=== PATIENT | male | born 1965 | race Two or more races ===

== ENCOUNTER → 2016-07-25 | Outpatient (CLI) | payer OTHER ==
[~2016-07-25] MED LIST: AMLO5TAB2 PO; ASPI-496 PO; CLIN300C93 PO; DULO30CA2 PO; IBUP200C PO; LISI-170 PO; METO50TA82 PO; OMEG1CAP12 PO; OMEP40CA6 PO; OXYC5CAP4 PO; PREG200C PO; TIZA4CAP PO; VITA1CAP3 PO
== END | disposition home or self-care (01) ==
LOC: RAD 10:08
DX: R79.89 Other specified abnormal findings of blood chemistry (principal)
CPT/HCPCS: 76700

== ENCOUNTER 2019-09-19 09:33 | Emergency (ER) | payer MEDICARE ==
[~2019-09-19] VITALS: Ht 175.3 cm; Wt 95.1 kg
[~2019-09-19 09:33] MED LIST changes: +AMLO-150 PO; -AMLO5TAB2 PO; +CLIN300C8 PO; -CLIN300C93 PO; +IBUP-1623 PO; -IBUP200C PO; -OMEG1CAP12 PO; +OMEG1CAP23 PO; +OMEP40CA42 PO; -OMEP40CA6 PO; +OXYC5CAP2 PO; -OXYC5CAP4 PO
[2019-09-19] MEDS ORDERED: MORPHINE SULFATE 4 MG/ML, 1ML IVPush PRN (10:00)
[2019-09-19] MEDS ORDERED: SODIUM CHLORIDE FLUSH 10ML SYR IVF ONE (10:00)
[2019-09-19] MEDS ORDERED: SODIUM CHLORIDE 0.9% 1,000ML IVBOLUS ONE (10:00)
[2019-09-19] MEDS ORDERED: ONDANSETRON 2MG/ML, 2ML IVPush ONE (10:00)
[2019-09-19] MEDS ORDERED: MORPHINE SULFATE 4 MG/ML, 1ML ONE (10:20)
[2019-09-19] MEDS ORDERED: ONDANSETRON 2MG/ML, 2ML ONE (10:20)
--- NOTE | 2019-09-19 10:32 | NUR ---
PIV STARTED AND BLOOD DRAWN AND WALKED TO LAB. PT MEDICATED PER MAY. PT TO CT AT THIS TIME.
[2019-09-19 10:34] LABS: INTERNATIONAL NORMALIZED RATIO 0.9 (0.93-1.1); PROTHROMBIN TIME 9.5 Seconds (9.6-11.5)
[2019-09-19 10:37] LABS: ALBUMIN 3.4 g/dL (3.4-5.0); ANION GAP 8 mmol/L (5-15); CALCIUM 8.9 mg/dL (8.5-10.1); CHLORIDE 103 mmol/L (98-107); CREATININE 1.12 mg/dL (0.7-1.3)
[2019-09-19 10:43] LABS: MEAN CORPUSCULAR HEMOGLOBIN 31.8 pg (27.5-34.5); MEAN CORPUSCULAR HGB CONC 32.8 g/dL (33.2-36.2); MEAN CORPUSCULAR VOLUME 96.9 fL (81-97); PLATELET COUNT 207 x10^3/uL (130-400); RED BLOOD COUNT 4.48 x10^6/uL (4.38-5.82); RED CELL DISTRIBUTION WIDTH 14.8 % (9.4-14.8)
[2019-09-19 10:44] LABS: MD YES
[2019-09-19 10:45] LABS: <PLATELET ESTIMATE> ADEQUATE; <PLT MORPHOLOGY> NORMAL PLT MORPH; <RBC MORPHOLOGY> NORMAL; BANDS%(MANUAL) 1 % (0-7); LYMPH#(MANUAL) 0.58 x10^3/uL (1-3.4); LYMPHS% (MANUAL) 6 % (22-44); MONOS#(MANUAL) 0.39 x10^3/uL (0.3-2.7); MONOS% (MANUAL) 4 % (2-9); SEG#(MANUAL) 8.63 x10^3/uL (1.8-6.8); SEGS% (MANUAL) 89 % (42-75)
[2019-09-19 10:52] LABS: ALANINE AMINOTRANSFERASE 49 U/L (12-78); ALKALINE PHOSPHATASE 78 U/L (45-117); BILIRUBIN,TOTAL 0.8 mg/dL (0.2-1.0); TOTAL PROTEIN 7.4 g/dL (6.4-8.2)
--- NOTE | 2019-09-19 10:57 | NUR ---
RECEIVED REPORT FROM [facility]. ASSUMING CARE AT THIS TIME. PT BACK FROM [facility]. [facility].
[2019-09-19 10:58] VITALS: BP 124/76
[2019-09-19] MEDS ORDERED: OMNIPAQUE 350 MG/ML, 100ML BOTTLE ONE (11:02)
--- NOTE | 2019-09-19 11:20 | NUR ---
ALL RESULTS ARE BACK AT THIS TIME. CHART UP FOR RECHECK.
--- NOTE | 2019-09-19 11:29 | NUR ---
MD AT BEDSIDE TO UPDATE PT ON POC.
[2019-09-19] MEDS ORDERED: metroNIDAZOLE 500 MG TABLET ONE (11:35)
[2019-09-19] MEDS ORDERED: CEFTRIAXONE PMX 1GM/50ML 50 ML ONE (11:35)
--- NOTE | 2019-09-19 11:39 | NUR ---
[facility] ADMIN PER MAY. DOES NOT WANT BLOOD CULTURES PRIOR.
[2019-09-19] MEDS ORDERED: CEFTRIAXONE PMX 1GM/50ML 50 ML IV ONE (12:00)
[2019-09-19] MEDS ORDERED: metroNIDAZOLE 500 MG TABLET PO ONE (12:00)
== END 2019-09-19 12:05 | disposition home or self-care (01) ==
LOC: ED 11:12
DX: K92.1 Melena (principal); R42 Dizziness and giddiness; R11.0 Nausea; I10 Essential (primary) hypertension
CPT/HCPCS: 36415; 74174; 80053; 83605; 85025; 85610; 96361; 96374; 96375; 99285; J0696; J2270; J2405; J7030; Q9967